=== PATIENT | male | born 1960 | race Caucasian/White ===

== ENCOUNTER 2021-08-31 03:41 | Inpatient (IN) ==
[2021-08-31] MEDS ORDERED: Ondansetron 4 MG/2 ML VIAL IVP PRN ×2 (04:28→08:35)
[2021-08-31] MEDS ORDERED: Isovue-370 500 ML BOTTLE IVP ONE (04:28)
[2021-08-31] MEDS ORDERED: Morphine Sulfate 2 MG/ML SYRINGE IVP ONE ×2 (04:28→08:00)
[2021-08-31] MEDS ORDERED: 0.9 % Sodium Chloride 1,000 ML IV ONE (04:28)
[2021-08-31] MEDS ORDERED: Pantoprazole 40 MG VIAL IVP ONE (04:30)
[2021-08-31] MEDS ORDERED: Famotidine 20 MG/2 ML VIAL IVP ONE (04:30)
[2021-08-31 05:44] LABS: Basophils % 0.1 %; Eosinophils % 0.1 %; Hematocrit 41.5 % (37.5-50.1); Hemoglobin 14.3 g/dL (12.9-16.9); Immature Granulocytes % 0.4 % (0-4); Lymphocytes # 1.1 K/mcL (0.6-4.6); Lymphocytes % 13.7 %; Mean Corpuscular HGB Conc 34.5 g/dL (31.6-35.5); Mean Corpuscular Hemoglobin 31.7 pg (28.0-33.3); Mean Platelet Volume 10.4 fL (9.4-12.4); Monocytes # 0.6 K/mcL (0.0-1.3); Monocytes % 7.1 %; Neutrophils # 6.2 K/mcL (1.6-8.9); Platelet Count 203 K/mcL (140-400); Red Blood Count 4.51 M/mcL (4.19-5.50); Red Cell Distribution Width 12.6 % (11.5-14.5); Segmented Neutrophils % 78.6 %; White Blood Count 7.9 K/mcL (4.3-11.1)
[2021-08-31 05:52] LABS: INR 1.1
[2021-08-31 05:55] LABS: Activated Partial Thrombo Time 29.9 Seconds (26.0-36.0)
[2021-08-31 06:00] LABS: Alanine Aminotransferase 12 Units/L (7-52); Albumin 4.7 g/dL (3.5-5.7); Albumin/Globulin Ratio 1.8 (1.1-2.2); Alkaline Phosphatase 61 Units/L (34-104); Aspartate Amino Transferase 19 Units/L (13-39); BUN/Creatinine Ratio 12 (6-26); Bilirubin,Direct 0.1 mg/dL (0.0-0.2); Bilirubin,Indirect 0.5 mg/dL (0.0-1.0); Bilirubin,Total 0.6 mg/dL (0.3-1.0); Blood Urea Nitrogen 14 mg/dL (6-20); Calcium 9.2 mg/dL (8.6-10.3); Carbon Dioxide 24 mEq/L (23-29); Chloride 105 mEq/L (98-107); Globulin 2.6 g/dL (2.4-3.5); Glucose 114 mg/dL (70-105); Lipase 23 Units/L (11-82); Osmolality,Calculated 291 (280-300); Potassium 3.4 mEq/L (3.5-5.1); Sodium 140 mEq/L (136-145); Total Protein 7.3 g/dL (6.4-8.9); Troponin I < 0.03 ng/mL (< 0.04); eGFR For African Americans > 60 (> 60); eGFR For Non-African Americans > 60 (> 60)
[2021-08-31] MEDS ORDERED: MetroNIDAZOLE 500 MG/100 ML 500 MG/100 ML BAG IVPB ONE (06:57)
[2021-08-31] MEDS ORDERED: cefTRIAXone 1,000 MG in 0.9 % Sodium Chloride Mini Bag 100 ML IVPB ONE (06:57)
[2021-08-31 07:56] LABS: Bilirubin,Urine Negative (Negative); Blood,Urine Negative (Negative); Clarity,Urine Clear (Clear); Color,Urine Light-Yellow (Yellow); Glucose,Urine (UA) Normal (Normal); Ketones,Urine Negative (Negative); Leukocyte Esterase,Urine Negative (Negative); Nitrite,Urine Negative (Negative); PH,Urine 7.5 pH Units (5.0-8.0); Protein,Urine Trace mg/dL (Neg-Trace); Specific Gravity,Urine > 1.030 (1.010-1.025)
[2021-08-31] MEDS ORDERED: Acetaminophen IV 1,000 MG/100 ML BAG IVPB ONE ×2 (08:00→19:38)
[2021-08-31 08:32] LABS: Influenza A PCR Negative (Negative); Influenza B PCR Negative (Negative); Resp. Syncytial Virus PCR Negative (Negative)
[2021-08-31] MEDS ORDERED: Acetaminophen 325 MG TABLET PO PRN (08:35)
[2021-08-31] MEDS ORDERED: Naloxone 0.4 MG/ML INJ IVP PRN (08:35)
[2021-08-31 09:45] LABS: SARS-CoV-2 by PCR (In House) Negative (Negative)
[2021-08-31] MEDS ORDERED: 0.9 % Sodium Chloride 1,000 ML IVC ONE (09:46)
[2021-08-31] MEDS: 0.9 % Sodium Chloride 1,000 ML IVC SCH ×2 (11:15→20:44)
[2021-08-31] MEDS: Piperacillin/Tazobactam 3.375 GM in 0.9 % Sodium Chloride Mini Bag 100 ML IVPB SCH ×3 (11:16→23:21)
[2021-08-31] MEDS: *HR* HYDROmorphone 2 MG/ML SYRINGE IVP PRN ×2 (15:32→19:52)
[2021-09-01 02:57] LABS: Basophils % 0.1 %; Hematocrit 36.9 % (37.5-50.1); Immature Granulocytes % 1.8 % (0-4); Lymphocytes # 0.8 K/mcL (0.6-4.6); Lymphocytes % 4.5 %; Mean Corpuscular HGB Conc 34.4 g/dL (31.6-35.5); Mean Corpuscular Hemoglobin 32.2 pg (28.0-33.3); Mean Corpuscular Volume 93.7 fL (83.0-100.0); Mean Platelet Volume 10.4 fL (9.4-12.4); Monocytes # 1.6 K/mcL (0.0-1.3); Neutrophils # 15.2 K/mcL (1.6-8.9); Platelet Count 157 K/mcL (140-400); Red Blood Count 3.94 M/mcL (4.19-5.50); Red Cell Distribution Width 13.1 % (11.5-14.5); Segmented Neutrophils % 84.6 %
[2021-09-01 02:58] LABS: Hemoglobin 12.7 g/dL (12.9-16.9)
[2021-09-01] MEDS: *HR* HYDROmorphone 2 MG/ML SYRINGE IVP PRN (03:08)
[2021-09-01 03:10] LABS: INR 1.6; Prothrombin Time 17.3 Seconds (9.4-12.1)
[2021-09-01 03:16] LABS: BUN/Creatinine Ratio 17 (6-26); Blood Urea Nitrogen 19 mg/dL (6-20); Calcium 7.9 mg/dL (8.6-10.3); Carbon Dioxide 22 mEq/L (23-29); Chloride 111 mEq/L (98-107); Glucose 118 mg/dL (70-105); Magnesium 1.5 mg/dL (1.6-2.6); Osmolality,Calculated 289 (280-300); Potassium 3.7 mEq/L (3.5-5.1); Sodium 138 mEq/L (136-145); eGFR For African Americans > 60 (> 60); eGFR For Non-African Americans > 60 (> 60)
[2021-09-01 03:18] LABS: Albumin 3.5 g/dL (3.5-5.7); Albumin/Globulin Ratio 1.5 (1.1-2.2); Bilirubin,Direct 0.4 mg/dL (0.0-0.2); Bilirubin,Total 1.4 mg/dL (0.3-1.0); Globulin 2.4 g/dL (2.4-3.5); Total Protein 5.9 g/dL (6.4-8.9)
[2021-09-01] MEDS: 0.9 % Sodium Chloride 1,000 ML IVC SCH ×3 (06:27→23:26)
[2021-09-01] MEDS ORDERED: *HR* Enoxaparin 40 MG/0.4 ML SYRINGE SQ SCH (07:00)
[2021-09-01] MEDS ORDERED: CefOXitin 1,000 MG VIAL ONE (08:05)
[2021-09-01] MEDS ORDERED: Isovue-300 50ML VIAL ONE (08:05)
[2021-09-01] MEDS ORDERED: BIKTARVY PO SCH (09:00)
[2021-09-01] MEDS: Piperacillin/Tazobactam 3.375 GM in 0.9 % Sodium Chloride Mini Bag 100 ML IVPB SCH ×3 (10:00→23:26)
[2021-09-01] MEDS ORDERED: Lidocaine -MPF 2% 5 ML VIAL ONE (10:05)
[2021-09-01] MEDS ORDERED: Lidocaine HCL 4 ML Topical Solution (Laryng-O-Jet Kit Sterile Pak) TP ONE (10:05)
[2021-09-01] MEDS ORDERED: Ketorolac 30 MG/ML VIAL ONE (10:05)
[2021-09-01] MEDS ORDERED: Ondansetron 4 MG/2 ML VIAL ONE (10:05)
[2021-09-01] MEDS ORDERED: *HR* Succinylcholine 200 MG/10 ML VIAL IVP ONE (10:05)
[2021-09-01] MEDS ORDERED: *HR* Propofol 200 MG/20 ML VIAL IVP ONE (10:05)
[2021-09-01] MEDS ORDERED: *HR* Rocuronium Bromide 50 MG/5 ML VIAL ONE (10:05)
[2021-09-01] MEDS ORDERED: *HR* FentaNYL (PF) 100 MCG/2 ML VIAL ONE (10:06)
[2021-09-01] MEDS ORDERED: *HR* Midazolam HCl 2 MG/2 ML VIAL ONE (10:06)
[2021-09-01] MEDS ORDERED: *HR* Promethazine 25 MG/ML VIAL IVPB PRN ×2 (10:43→14:14)
[2021-09-01] MEDS ORDERED: Acetaminophen IV 1,000 MG/100 ML BAG IVPB ONE ×3 (10:43→14:14)
[2021-09-01] MEDS ORDERED: *HR* OxyCODONE Immed Rel 5 MG TABLET PO PRN ×2 (10:43→14:14)
[2021-09-01] MEDS ORDERED: *HR* HYDROmorphone (PF) 1 MG/ML SYRINGE IVP PRN ×2 (10:43→14:14)
[2021-09-01] MEDS ORDERED: *HR* Labetalol 20 MG/4 ML SYRINGE IVP PRN ×2 (10:43→14:14)
[2021-09-01] MEDS ORDERED: *HR* HYDROmorphone 2 MG TABLET PO PRN ×2 (10:43→14:14)
[2021-09-01] MEDS ORDERED: Famotidine 20 MG/2 ML VIAL IVP ONE ×2 (10:43→14:14)
[2021-09-01] MEDS ORDERED: EPHEDrine 50 MG/ML VIAL ONE (11:53)
[2021-09-01] MEDS ORDERED: *HR* HYDROmorphone 2 MG/ML SYRINGE IVP PRN (14:14)
[2021-09-01] MEDS ORDERED: Naloxone 0.4 MG/ML INJ IVP PRN (14:14)
[2021-09-01] MEDS ORDERED: Ondansetron 4 MG/2 ML VIAL IVP PRN (14:14)
[2021-09-01] MEDS ORDERED: Acetaminophen 325 MG TABLET PO PRN (14:14)
[2021-09-02] MEDS: *HR* Enoxaparin 40 MG/0.4 ML SYRINGE SQ SCH (05:32)
[2021-09-02 06:02] LABS: Basophils % 0.1 %; Hematocrit 32.8 % (37.5-50.1); Hemoglobin 11.2 g/dL (12.9-16.9); Immature Granulocytes % 3.9 % (0-4); Lymphocytes # 0.8 K/mcL (0.6-4.6); Mean Corpuscular HGB Conc 34.1 g/dL (31.6-35.5); Mean Corpuscular Hemoglobin 32.4 pg (28.0-33.3); Mean Corpuscular Volume 94.8 fL (83.0-100.0); Mean Platelet Volume 10.7 fL (9.4-12.4); Monocytes # 0.6 K/mcL (0.0-1.3); Monocytes % 4.5 %; Platelet Count 122 K/mcL (140-400); Red Blood Count 3.46 M/mcL (4.19-5.50); Red Cell Distribution Width 13.4 % (11.5-14.5); Segmented Neutrophils % 85.5 %; White Blood Count 13.9 K/mcL (4.3-11.1)
[2021-09-02 06:05] LABS: Neutrophils # 11.9 K/mcL (1.6-8.9)
[2021-09-02 06:28] LABS: Alanine Aminotransferase 20 Units/L (7-52); Albumin 3.2 g/dL (3.5-5.7); Albumin/Globulin Ratio 1.4 (1.1-2.2); Alkaline Phosphatase 45 Units/L (34-104); Aspartate Amino Transferase 26 Units/L (13-39); BUN/Creatinine Ratio 26 (6-26); Bilirubin,Total 0.7 mg/dL (0.3-1.0); Blood Urea Nitrogen 29 mg/dL (6-20); Calcium 8.2 mg/dL (8.6-10.3); Carbon Dioxide 22 mEq/L (23-29); Chloride 108 mEq/L (98-107); Globulin 2.3 g/dL (2.4-3.5); Glucose 111 mg/dL (70-105); Osmolality,Calculated 289 (280-300); Sodium 136 mEq/L (136-145); Total Protein 5.5 g/dL (6.4-8.9); eGFR For African Americans > 60 (> 60); eGFR For Non-African Americans > 60 (> 60)
[2021-09-02 06:45] LABS: Hypochromasia Present (Not Present); Platelet Estimate Slight Decrease (Normal); Reactive Lymphocytes Present (Not Present); Smudge Cells Present (Not Present)
[2021-09-02] MEDS: BIKTARVY PO SCH (08:22)
[2021-09-02] MEDS: Piperacillin/Tazobactam 3.375 GM in 0.9 % Sodium Chloride Mini Bag 100 ML IVPB SCH ×3 (08:23→23:24)
[2021-09-02] MEDS ORDERED: [UNRECOGNIZED DRUG - OTHER] PO SCH (09:00)
[2021-09-02 15:26] LABS: HIV-1 Viral Load Interp NOT DETECTED (Not Detected)
[2021-09-03 00:28] VITALS: O2SAT 95
[2021-09-03 03:11] VITALS: BP 105/67; PULSE 59; TEMP 98.5
[2021-09-03 03:33] LABS: Basophils % 0.1 %; Hematocrit 32.2 % (37.5-50.1); Hemoglobin 10.7 g/dL (12.9-16.9); Immature Granulocytes % 1.1 % (0-4); Lymphocytes # 1.4 K/mcL (0.6-4.6); Lymphocytes % 11.7 %; Mean Corpuscular HGB Conc 33.2 g/dL (31.6-35.5); Mean Corpuscular Hemoglobin 31.5 pg (28.0-33.3); Mean Corpuscular Volume 94.7 fL (83.0-100.0); Mean Platelet Volume 11.2 fL (9.4-12.4); Monocytes # 0.6 K/mcL (0.0-1.3); Monocytes % 5.3 %; Neutrophils # 9.9 K/mcL (1.6-8.9); Platelet Count 139 K/mcL (140-400); Red Cell Distribution Width 13.1 % (11.5-14.5); Segmented Neutrophils % 81.8 %; White Blood Count 12.1 K/mcL (4.3-11.1)
[2021-09-03 03:48] LABS: BUN/Creatinine Ratio 26 (6-26); Blood Urea Nitrogen 28 mg/dL (6-20); Calcium 7.8 mg/dL (8.6-10.3); Carbon Dioxide 23 mEq/L (23-29); Chloride 109 mEq/L (98-107); Glucose 89 mg/dL (70-105); Osmolality,Calculated 283 (280-300); Potassium 3.8 mEq/L (3.5-5.1); Sodium 134 mEq/L (136-145); eGFR For African Americans > 60 (> 60); eGFR For Non-African Americans > 60 (> 60)
[2021-09-03] MEDS: *HR* Enoxaparin 40 MG/0.4 ML SYRINGE SQ SCH (07:38)
[2021-09-03] MEDS: Piperacillin/Tazobactam 3.375 GM in 0.9 % Sodium Chloride Mini Bag 100 ML IVPB SCH (07:38)
[2021-09-03] MEDS ORDERED: Aspirin 81 MG TAB.CHEW PO SCH (09:00)
[2021-09-03] MEDS: BIKTARVY PO SCH (10:42)
== END 2021-09-03 11:41 | disposition home or self-care (01) | DRG 418 ==
LOC: EMEROOARM 03:41 → 3ANU 03:41 → SUATTDRO 09-02 14:08
PROVIDERS: ADMIT Pharmacist; ATTEND Internal Medicine